=== PATIENT | male | born 1945 | race Caucasian/White ===

== ENCOUNTER → 2020-05-22 11:11 | Outpatient (BNVA) | payer MEDICARE, BC, SELFPAY | PROVIDERS: Family Provider Family Medicine; Visit Provider Surgery | DX: Z86.010 Personal history of colon polyps (principal) | CPT/HCPCS: 87635 ==

== ENCOUNTER 2020-05-26 06:29 | Day surgery (SDC) | payer MEDICARE, BC, SELFPAY ==
[2020-05-22 14:09] VITALS: BMI 23.8
[2020-05-22 16:16] VITALS: BMI 23.1
[2020-05-26 06:43] VITALS: BP 153/75; PULSE 88; RESP 18; TEMP 36.6; O2SAT 97
--- NOTE | 2020-05-26 07:00 | ANES.PREANE2 ---
Pre-Anesthetic Assessment Pre-Anesthetic Assessment: Height/Weight: Height 1.88 m Weight 81.647 kg Temp Pulse Resp BP Pulse Ox 97.9 F 88 18 153/75 97 05/26/20 06:43 05/26/20 06:43 05/26/20 06:43 05/26/20 06:43 05/26/20 06:43 Preop Diagnosis: History of colon polyps Proposed Procedure: Operation Date: 05/26/20 07:30 Proposed Procedures p Colonoscopy 63164 Z86.010(Not Applicable) - Adithya Brennan MD Was Beta [place] taken within 24 hours: N/A Last intake: Intake Last Liquid Date 05/25/20 Last Liquid Time 20:00 Last Solid Date 05/24/20 Last Solid Time 20:00 Social: Social History: No alcohol and No tobacco Exam: Pre-Anes Outpt Exam: alert, oriented x 3, clear to auscultation bilaterally and regular rate & rhythm Airway: Submandibular: WNL Cervical ROM: WNL MP: 2 Dentition: Full History/ROS: No significant history except as noted and No significant complaints Pulmonary: Pulmonary: None reported CV/HEM: CV/HEM: None reported : : None reported Hepatic: Hepatic: None reported GI: GI: None reported Metabolic: Metabolic: None reported Musc/skel: Musc/skel: None reported Neuropsych: Neuropsych: None reported Anesthetic Plan: ASA status: 2 Anesthesia: MAC Risk of > 500 ml blood loss (7ml/kg in children): No PFSH Anesthesia PFSH: Medical History (Updated 05/02/20 @ 11:45 by Adithya Brennan MD) H/O prostate cancer H/O: CVA (cerebrovascular accident) History of colon polyps Hyperlipidemia Macular degeneration Melanoma Right inguinal hernia Sleep apnea Surgical History H/O cataract extraction H/O colonoscopy 2017 Status post left inguinal hernia repair Family History Sister Cancer breast Denies family history of Anesthesia complication Bleeding disorder Social History Smoking and tobacco status: former smoker Alcohol intake: never Household members: spouse Marital status: Current occupational status: retired History of recent travel: No Data Anesthesia Cardiac Studies: No Data to Display
[2020-05-26] MEDS: sodium chloride 0.9% 500 ML 999 ML IV (07:04)
--- NOTE | 2020-05-26 07:04 | W.PM.OPSUD ---
Surgery/Procedure H&P Update DATE OF PROCEDURE: May 26, 2020 DATE H&P PERFORMED: 05/01/20 H&P UPDATE INFORMATION: I have reviewed H&P completed within last 30 days, I have examined patient prior to procedure and No changes to prior documentation PREOP DIAGNOSIS: History of colon polyps PLANNED PROCEDURE: Operation Date: 05/26/20 07:30 Proposed Procedures p Colonoscopy [id number] Z86.010(Not Applicable) - Adithya Brennan MD
[2020-05-26 08:27] VITALS: BP 121/72; PULSE 50; RESP 20; TEMP 36.8; O2SAT 95
[2020-05-26 08:46] VITALS: BP 124/80; PULSE 68; RESP 18; O2SAT 97
--- NOTE | 2020-05-26 08:55 | ANE.PACU2 ---
Inpatient post-anesthesia follow up: Vital signs: Temperature 98.3 F Pulse Rate 68 Respiratory Rate 18 Blood Pressure 124/80 Pulse Oximetry 97 Oxygen Delivery Me thod Room Air Oxygen Flow Rate Fraction of Inspir ed Oxygen Hydration adequate: Yes Nausea and vomiting: No Pain level: 1 Mental status: Baseline
== END 2020-05-26 08:58 | disposition home or self-care (01) ==
PROVIDERS: Family Provider Family Medicine; Visit Provider Surgery
PROC: 0DJD8ZZ Inspection of Lower Intestinal Tract, Via Natural or Artificial Opening Endoscopic (ICD-10-PCS; CPT 45378; principal; 2020-05-26 07:30)
DX: Z86.010 Personal history of colon polyps (principal); D12.4 Benign neoplasm of descending colon; K57.30 Diverticulosis of large intestine without perforation or abscess without bleeding; K64.8 Other hemorrhoids; Z79.82 Long term (current) use of aspirin; Z85.46 Personal history of malignant neoplasm of prostate; E78.5 Hyperlipidemia, unspecified; G47.30 Sleep apnea, unspecified; Z99.81 Dependence on supplemental oxygen; Z87.891 Personal history of nicotine dependence
CPT/HCPCS: 12345; 45380; 88305; J2405; J2704; J7040